=== PATIENT | male | born 1955 | race Caucasian/White ===

== ENCOUNTER 2021-02-27 15:39 | Inpatient (IN) | payer MEDICARE ==
[2021-02-27] MEDS ORDERED: cefTRIAXone\\ROCEPHIN 1 GM VIAL ONE (16:21)
[2021-02-27 16:27] LABS: ALT (SGPT) 58 U/L (8-55); AST (SGOT) 67 U/L (5-34); Albumin 3.5 g/dL (3.4-4.8); Alkaline Phosphatase 144 U/L (40-110); Anion Gap 16 mmol/L (10-20); BUN (Urea Nitrogen) 16 mg/dL (8.4-25.7); Bilirubin, Total 1.2 mg/dL (0.2-1.2); CRP (Inflammatory) 14.16 mg/dL (= or < 0.5); Calc. Creatinine Clearance 0 mL/min (70-130); Calcium 9.2 mg/dL (7.8-10.44); Carbon Dioxide 24 mmol/L (23-31); Chloride 95 mmol/L (98-107); Globulin 3.6 g/dL (2.4-3.5); Glucose 119 mg/dL (80-115); Protein, Total 7.1 g/dL (5.8-8.1); Sodium 131 mmol/L (136-145)
[2021-02-27 16:43] LABS: #Monocytes 0.5 10x3/uL (0.0-1.1); #Neutrophils 2.8 10x3/uL (1.5-8.4); %Basophils 0.2 % (0.0-2.0); %Lymphocytes 26.1 % (18.0-47.0); %Monocytes 10.6 % (0.0-10.0); %Neutrophils 62.4 % (40.0-75.0); Hemoglobin 15.7 g/dL (13.5-17.5); Mean Corpuscular HGB CONC 35.4 g/dL (32.0-36.0); Mean Corpuscular Hemoglobin 31.5 pg (27.0-33.0); Mean Platelet Volume 10.8 fl (7.4-10.4); Platelet Count 176 10x3/uL (150-450); RBC Distribution Width 12.1 % (11.5-14.5); Red Blood Cell (RBC) Count 4.99 10x6/uL (4.32-5.72); White Blood Cell (WBC) Count 4.4 10x3/uL (3.5-10.5)
[2021-02-27 16:56] LABS: Actual Bicarbonate (HCO3v) 26 mEq/L (22-28); Base Excess 0.1 mEq/L (-2.0 to +3.0); Calcium, Ionized (venous) 1.07 mmol/L (1.16-1.32); Chloride (VBG) 94 mmol/L (98-106); Hemoglobin (Hb) 16.9 g/dL (12.6-17.4); Potassium (VBG) 3.95 mmol/L (3.70-5.30); Puncture Site Other Site; RapidComm Collect By CBN; pH (venous) 7.38 (7.32-7.43)
[2021-02-27 17:30] LABS: SARS-CoV-2 NAA Rapid Test DETECTED (NotDetected)
[2021-02-27] MEDS ORDERED: Dexamethasone 10 MG/ML VIAL ONE (17:42)
[2021-02-27] MEDS ORDERED: Nitroglycerin 2% Ointment 1 INCH/1 GM Packet ONE (18:13)
[2021-02-27] MEDS ORDERED: Aspirin Chewable 81 MG TAB ONE (18:13)
[2021-02-27 18:33] LABS: Bilirubin Neg (Negative); Blood, Urine Negative (Negative); Clarity Clear (Clear); Glucose, Urine (Dipstick) Normal (Negative); Ketone, Urine Negative (Negative); Leukocyte Negative (Negative); Nitrite Negative (Negative); Protein, Urine (Dipstick) 15 mg/dl (Neg-Trace); Urobilinogen Normal mg/dL (Less than 2)
[2021-02-27] MEDS ORDERED: Acetaminophen 325 MG TAB PO PRN (20:11)
[2021-02-27] MEDS ORDERED: Ondansetron PF 4 MG/2 ML Vial IVP PRN (20:11)
[2021-02-27] MEDS ORDERED: Dextrose 50% Abboject 50 ML SYRINGE SLOW IVP PRN (20:11)
[2021-02-27] MEDS ORDERED: Calcium Carbonate 500 MG ChewTAB PO PRN (20:11)
[2021-02-27] MEDS ORDERED: HYDROcodone/Acetaminophen 5/325 mg Tablet PO PRN (20:11)
[2021-02-27] MEDS ORDERED: Senokot S 8.6-50 MG TAB PO PRN (20:11)
[2021-02-27] MEDS ORDERED: Zolpidem Tartrate 5 MG TAB PO PRN (20:11)
[2021-02-27] MEDS ORDERED: Dextrose 5% in Water 1,000 ML IV PRN (20:11)
[2021-02-27] MEDS ORDERED: Guaifenesin DM 100-10/5 ML UDCUP PO PRN (20:11)
[2021-02-27] MEDS ORDERED: Ventolin HFA Inhaler 60 PUFF INHALER INH PRN (20:13)
[2021-02-27] MEDS ORDERED: Sodium Chloride 0.9% 1,000 ML IV SCH (20:15)
[2021-02-28 09:28] LABS: Hemoglobin 14.6 g/dL (13.5-17.5); Mean Corpuscular HGB CONC 34.8 g/dL (32.0-36.0); Mean Corpuscular Hemoglobin 31.5 pg (27.0-33.0); Mean Corpuscular Volume 90.3 fl (81.2-95.1); Mean Platelet Volume 10.7 fl (7.4-10.4); Platelet Count 188 10x3/uL (150-450); Red Blood Cell (RBC) Count 4.64 10x6/uL (4.32-5.72); White Blood Cell (WBC) Count 2.1 10x3/uL (3.5-10.5)
[2021-02-28 09:43] LABS: ALT (SGPT) 51 U/L (8-55); AST (SGOT) 48 U/L (5-34); Albumin 3.1 g/dL (3.4-4.8); Alkaline Phosphatase 130 U/L (40-110); Anion Gap 14 mmol/L (10-20); BUN (Urea Nitrogen) 18 mg/dL (8.4-25.7); Bilirubin, Total 0.8 mg/dL (0.2-1.2); CRP (Inflammatory) 10.61 mg/dL (= or < 0.5); Calc. Creatinine Clearance 0 mL/min (70-130); Calcium 8.6 mg/dL (7.8-10.44); Carbon Dioxide 19 mmol/L (23-31); Chloride 104 mmol/L (98-107); Globulin 3.2 g/dL (2.4-3.5); Glucose 201 mg/dL (80-115); Protein, Total 6.3 g/dL (5.8-8.1); Sodium 133 mmol/L (136-145)
[2021-02-28 10:19] LABS: MDiff Complete? YES
[2021-02-28 10:24] LABS: Lymphocytes 24 % (21-51); Monocytes 12 % (0-10); Neutrophil 59 % (42-75); Reactive Lymphocytes 5 % (0-10)
[2021-02-28 10:25] LABS: Platelet Morphology Comment Appears Adequate
[2021-02-28 10:26] LABS: RBC Morphology Normal
[2021-02-28] MEDS: Ascorbic Acid 500 mg Chewable Tablet PO SCH (12:18)
[2021-02-28] MEDS: Cholecalciferol 1,000 UNITS (25 MCG) TAB PO SCH (12:18)
[2021-02-28] MEDS: Dexamethasone 4 mg/ml Vial SLOW IVP SCH (12:18)
[2021-02-28] MEDS: Aspirin 81 mg Enteric Coated Tablet PO SCH (12:18)
[2021-02-28] MEDS: Enoxaparin Sodium 40 MG/0.4 ML SYRINGE SC SCH (12:19)
[2021-02-28] MEDS: Lisinopril 10 MG TAB PO SCH (12:19)
[2021-02-28] MEDS: Zinc Gluconate 50 MG TAB PO SCH (12:19)
[2021-02-28] MEDS ORDERED: Dexamethasone 10 MG/ML VIAL ONE (12:39)
[2021-02-28] MEDS ORDERED: Aspirin Chewable 81 MG TAB ONE (12:39)
[2021-02-28] MEDS ORDERED: Enoxaparin Sodium 40 MG/0.4 ML SYRINGE ONE (12:40)
[2021-02-28] MEDS ORDERED: Lisinopril 10 MG TAB ONE (12:40)
[2021-02-28 13:58] VITALS: BMI 33.5
[2021-02-28] MEDS: HumaLOG 300 UNITS/3 ML VIAL SC PRN ×2 (17:33→23:34)
[2021-02-28] MEDS ORDERED: guaiFENesin/Dextromethorphan 10 ML UDCUP PO PRN (22:45)
[2021-03-01] MEDS: HumaLOG 300 UNITS/3 ML VIAL SC PRN ×2 (05:46→12:12)
[2021-03-01 06:43] LABS: ALT (SGPT) 50 U/L (8-55); AST (SGOT) 37 U/L (5-34); Albumin 2.9 g/dL (3.4-4.8); Alkaline Phosphatase 115 U/L (40-110); Anion Gap 15 mmol/L (10-20); BUN (Urea Nitrogen) 19 mg/dL (8.4-25.7); Bilirubin, Total 0.7 mg/dL (0.2-1.2); Calc. Creatinine Clearance 155 mL/min (70-130); Calcium 8.5 mg/dL (7.8-10.44); Carbon Dioxide 21 mmol/L (23-31); Chloride 105 mmol/L (98-107); Globulin 3.1 g/dL (2.4-3.5); Glucose 207 mg/dL (80-115); Potassium 4.5 mmol/L (3.5-5.1); Sodium 136 mmol/L (136-145)
[2021-03-01 07:06] LABS: Hemoglobin 14.3 g/dL (13.5-17.5); Mean Corpuscular HGB CONC 35.1 g/dL (32.0-36.0); Mean Corpuscular Hemoglobin 31.5 pg (27.0-33.0); Mean Corpuscular Volume 89.6 fl (81.2-95.1); Mean Platelet Volume 11.3 fl (7.4-10.4); Platelet Count 200 10x3/uL (150-450); RBC Distribution Width 12.2 % (11.5-14.5); Red Blood Cell (RBC) Count 4.54 10x6/uL (4.32-5.72); White Blood Cell (WBC) Count 5.1 10x3/uL (3.5-10.5)
[2021-03-01 07:08] LABS: MDiff Complete? YES
[2021-03-01 07:46] LABS: Band 2 % (5-11); Lymphocytes 19 % (21-51); Monocytes 9 % (0-10); Neutrophil 70 % (42-75)
[2021-03-01 07:47] LABS: Platelet Morphology Comment Appears Adequate; RBC Morphology Normal
[2021-03-01] MEDS: Dexamethasone 4 mg/ml Vial SLOW IVP SCH (08:36)
[2021-03-01] MEDS: Enoxaparin Sodium 40 MG/0.4 ML SYRINGE SC SCH (08:36)
[2021-03-01] MEDS: Cholecalciferol 1,000 UNITS (25 MCG) TAB PO SCH (08:36)
[2021-03-01] MEDS: Ascorbic Acid 500 mg Chewable Tablet PO SCH (08:36)
[2021-03-01] MEDS: Lisinopril 10 MG TAB PO SCH (08:36)
[2021-03-01] MEDS: Zinc Gluconate 50 MG TAB PO SCH (08:36)
[2021-03-01] MEDS: Aspirin 81 mg Enteric Coated Tablet PO SCH (08:36)
[2021-03-01] MEDS ORDERED: Lantus 1000 UNITS/10 ML VIAL SC SCH (21:00)
[2021-03-02 07:07] LABS: #Monocytes 0.5 10x3/uL (0.0-1.1); #Neutrophils 5.4 10x3/uL (1.5-8.4); %Lymphocytes 10.2 % (18.0-47.0); %Monocytes 7.4 % (0.0-10.0); %Neutrophils 81.5 % (40.0-75.0); Hemoglobin 13.8 g/dL (13.5-17.5); Mean Corpuscular HGB CONC 34.2 g/dL (32.0-36.0); Mean Corpuscular Hemoglobin 31.4 pg (27.0-33.0); Mean Platelet Volume 10.6 fl (7.4-10.4); Platelet Count 232 10x3/uL (150-450); RBC Distribution Width 12.1 % (11.5-14.5); Red Blood Cell (RBC) Count 4.39 10x6/uL (4.32-5.72); White Blood Cell (WBC) Count 6.7 10x3/uL (3.5-10.5)
[2021-03-02 08:30] LABS: ALT (SGPT) 52 U/L (8-55); AST (SGOT) 35 U/L (5-34); Albumin 2.8 g/dL (3.4-4.8); Alkaline Phosphatase 104 U/L (40-110); Anion Gap 16 mmol/L (10-20); BUN (Urea Nitrogen) 17 mg/dL (8.4-25.7); Bilirubin, Total 0.7 mg/dL (0.2-1.2); Calc. Creatinine Clearance 165 mL/min (70-130); Calcium 8.4 mg/dL (7.8-10.44); Carbon Dioxide 20 mmol/L (23-31); Chloride 105 mmol/L (98-107); Globulin 2.9 g/dL (2.4-3.5); Glucose 185 mg/dL (80-115); Potassium 4.2 mmol/L (3.5-5.1); Protein, Total 5.7 g/dL (5.8-8.1); Sodium 137 mmol/L (136-145)
[2021-03-02] MEDS: Lisinopril 10 MG TAB PO SCH (09:18)
[2021-03-02] MEDS: Zinc Gluconate 50 MG TAB PO SCH (09:18)
[2021-03-02] MEDS: Ascorbic Acid 500 mg Chewable Tablet PO SCH (09:18)
[2021-03-02] MEDS: Aspirin 81 mg Enteric Coated Tablet PO SCH (09:18)
[2021-03-02] MEDS: Cholecalciferol 1,000 UNITS (25 MCG) TAB PO SCH (09:18)
[2021-03-02] MEDS: Dexamethasone 4 mg/ml Vial SLOW IVP SCH (09:19)
[2021-03-02] MEDS: Enoxaparin Sodium 40 MG/0.4 ML SYRINGE SC SCH (09:19)
[2021-03-02] MEDS: HumaLOG 300 UNITS/3 ML VIAL SC PRN ×3 (09:24→21:30)
[2021-03-02] MEDS ORDERED: Lantus 1000 UNITS/10 ML VIAL SC SCH (19:52)
[2021-03-02] MEDS: Lantus 1000 UNITS/10 ML VIAL SC SCH (21:30)
[2021-03-03 06:16] LABS: #Monocytes 0.3 10x3/uL (0.0-1.1); #Neutrophils 5.1 10x3/uL (1.5-8.4); %Basophils 0.3 % (0.0-2.0); %Lymphocytes 11.9 % (18.0-47.0); %Monocytes 5.2 % (0.0-10.0); %Neutrophils 80.5 % (40.0-75.0); Hemoglobin 14.6 g/dL (13.5-17.5); Mean Corpuscular HGB CONC 33.8 g/dL (32.0-36.0); Mean Corpuscular Hemoglobin 31.4 pg (27.0-33.0); Mean Corpuscular Volume 92.9 fl (81.2-95.1); Mean Platelet Volume 10.7 fl (7.4-10.4); Platelet Count 243 10x3/uL (150-450); RBC Distribution Width 12.1 % (11.5-14.5); Red Blood Cell (RBC) Count 4.65 10x6/uL (4.32-5.72); White Blood Cell (WBC) Count 6.3 10x3/uL (3.5-10.5)
[2021-03-03 06:22] LABS: ALT (SGPT) 100 U/L (8-55); AST (SGOT) 64 U/L (5-34); Albumin 3.1 g/dL (3.4-4.8); Alkaline Phosphatase 122 U/L (40-110); Anion Gap 12 mmol/L (10-20); BUN (Urea Nitrogen) 16 mg/dL (8.4-25.7); Bilirubin, Total 1.2 mg/dL (0.2-1.2); Calc. Creatinine Clearance 153 mL/min (70-130); Calcium 8.8 mg/dL (7.8-10.44); Carbon Dioxide 26 mmol/L (23-31); Chloride 103 mmol/L (98-107); Globulin 3.2 g/dL (2.4-3.5); Glucose 130 mg/dL (80-115); Potassium 4.1 mmol/L (3.5-5.1); Protein, Total 6.3 g/dL (5.8-8.1); Sodium 137 mmol/L (136-145)
[2021-03-03] MEDS: Lisinopril 10 MG TAB PO SCH (09:00)
[2021-03-03] MEDS: Dexamethasone 4 mg/ml Vial SLOW IVP SCH (09:00)
[2021-03-03] MEDS: Enoxaparin Sodium 40 MG/0.4 ML SYRINGE SC SCH (09:00)
[2021-03-03] MEDS: Aspirin 81 mg Enteric Coated Tablet PO SCH (09:00)
[2021-03-03] MEDS: Ascorbic Acid 500 mg Chewable Tablet PO SCH (09:00)
[2021-03-03] MEDS: Cholecalciferol 1,000 UNITS (25 MCG) TAB PO SCH (09:00)
[2021-03-03] MEDS: Zinc Gluconate 50 MG TAB PO SCH (09:01)
[2021-03-03] MEDS ORDERED: Guaifenesin DM 100-10/5 ML UDCUP PO PRN (23:00)
[2021-03-03] MEDS: Lantus 1000 UNITS/10 ML VIAL SC SCH (23:02)
[2021-03-04 05:23] LABS: ALT (SGPT) 101 U/L (8-55); AST (SGOT) 44 U/L (5-34); Albumin 2.7 g/dL (3.4-4.8); Alkaline Phosphatase 128 U/L (40-110); Anion Gap 12 mmol/L (10-20); BUN (Urea Nitrogen) 13 mg/dL (8.4-25.7); Bilirubin, Total 1.4 mg/dL (0.2-1.2); Calc. Creatinine Clearance 159 mL/min (70-130); Calcium 8.6 mg/dL (7.8-10.44); Carbon Dioxide 23 mmol/L (23-31); Chloride 104 mmol/L (98-107); Globulin 3.1 g/dL (2.4-3.5); Glucose 126 mg/dL (80-115); Potassium 4.3 mmol/L (3.5-5.1); Protein, Total 5.8 g/dL (5.8-8.1); Sodium 135 mmol/L (136-145)
[2021-03-04 06:05] LABS: #Monocytes 0.2 10x3/uL (0.0-1.1); #Neutrophils 4.3 10x3/uL (1.5-8.4); %Basophils 0.4 % (0.0-2.0); %Eosinophils 0.2 % (0.0-6.0); %Lymphocytes 8.6 % (18.0-47.0); %Monocytes 4.4 % (0.0-10.0); Mean Corpuscular HGB CONC 34.8 g/dL (32.0-36.0); Mean Corpuscular Hemoglobin 31.8 pg (27.0-33.0); Mean Corpuscular Volume 91.4 fl (81.2-95.1); Mean Platelet Volume 10.3 fl (7.4-10.4); Platelet Count 245 10x3/uL (150-450); White Blood Cell (WBC) Count 5.3 10x3/uL (3.5-10.5)
[2021-03-04] MEDS: Ascorbic Acid 500 mg Chewable Tablet PO SCH (08:36)
[2021-03-04] MEDS: Lisinopril 10 MG TAB PO SCH (08:36)
[2021-03-04] MEDS: Aspirin 81 mg Enteric Coated Tablet PO SCH (08:36)
[2021-03-04] MEDS: Cholecalciferol 1,000 UNITS (25 MCG) TAB PO SCH (08:36)
[2021-03-04] MEDS: Zinc Gluconate 50 MG TAB PO SCH (08:36)
[2021-03-04] MEDS: Enoxaparin Sodium 120 MG/0.8 ML SYRINGE SC SCH ×2 (08:37→20:06)
[2021-03-04] MEDS: Dexamethasone 4 mg/ml Vial SLOW IVP SCH ×2 (08:37→20:07)
[2021-03-04] MEDS ORDERED: Furosemide 20 MG/2 ML VIAL SLOW IVP SCH (09:39)
[2021-03-04] MEDS: Amlodipine 5 MG TAB PO SCH (10:19)
[2021-03-04 14:26] LABS: Actual Bicarbonate (HCO3a) 26.7 mEq/L (22-28); Base Excess (BEa) 3.6 mEq/L (-2.0 to +3.0); CO2 Tension 35.8 mmHg (35.0-45.0); Calcium, Ionized (arterial) 1.12 mmol/L (1.12-1.30); Carboxyhemoglobin (COHb) 0.1 gm% (0.0-3.0); Hemoglobin (Hb) 14.3 g/dL (14.0-18.0); O2 Tension (PaO2), arterial 66.4 mmHg (> 80.0); Potassium - ABG Lab 4.6 mmol/L (3.70-5.30); Puncture Site RRA; pH, Arterial 7.49 (7.35-7.45)
[2021-03-04] MEDS: HumaLOG 300 UNITS/3 ML VIAL SC PRN (17:44)
[2021-03-04] MEDS: Lantus 1000 UNITS/10 ML VIAL SC SCH (20:07)
[2021-03-05] MEDS: HumaLOG 300 UNITS/3 ML VIAL SC PRN ×3 (00:41→11:55)
[2021-03-05 03:43] LABS: Hemoglobin 14.7 g/dL (13.5-17.5); Mean Corpuscular HGB CONC 34.9 g/dL (32.0-36.0); Mean Corpuscular Hemoglobin 31.6 pg (27.0-33.0); Mean Corpuscular Volume 90.5 fl (81.2-95.1); Mean Platelet Volume 10.3 fl (7.4-10.4); Platelet Count 255 10x3/uL (150-450); RBC Distribution Width 12.1 % (11.5-14.5); Red Blood Cell (RBC) Count 4.65 10x6/uL (4.32-5.72); White Blood Cell (WBC) Count 3.5 10x3/uL (3.5-10.5)
[2021-03-05 04:04] LABS: ALT (SGPT) 72 U/L (8-55); AST (SGOT) 23 U/L (5-34); Albumin 2.7 g/dL (3.4-4.8); Alkaline Phosphatase 116 U/L (40-110); Anion Gap 14 mmol/L (10-20); BUN (Urea Nitrogen) 21 mg/dL (8.4-25.7); CRP (Inflammatory) 24.47 mg/dL (= or < 0.5); Calc. Creatinine Clearance 153 mL/min (70-130); Calcium 8.6 mg/dL (7.8-10.44); Carbon Dioxide 23 mmol/L (23-31); Chloride 101 mmol/L (98-107); Globulin 3.2 g/dL (2.4-3.5); Glucose 230 mg/dL (80-115); Potassium 4.5 mmol/L (3.5-5.1); Protein, Total 5.9 g/dL (5.8-8.1); Sodium 133 mmol/L (136-145)
[2021-03-05] MEDS: Dexamethasone 4 mg/ml Vial SLOW IVP SCH ×2 (07:52→20:27)
[2021-03-05] MEDS: Enoxaparin Sodium 120 MG/0.8 ML SYRINGE SC SCH ×2 (07:52→20:28)
[2021-03-05] MEDS: Lisinopril 10 MG TAB PO SCH (07:53)
[2021-03-05] MEDS: Cholecalciferol 1,000 UNITS (25 MCG) TAB PO SCH (07:53)
[2021-03-05] MEDS: Amlodipine 5 MG TAB PO SCH (07:53)
[2021-03-05] MEDS: Zinc Gluconate 50 MG TAB PO SCH (07:53)
[2021-03-05] MEDS: Ascorbic Acid 500 mg Chewable Tablet PO SCH (07:54)
[2021-03-05] MEDS: Aspirin 81 mg Enteric Coated Tablet PO SCH (07:54)
[2021-03-05 08:03] LABS: Lymphocytes 11 % (21-51); MDiff Complete? YES; Monocytes 5 % (0-10); Myelocyte 1 % (0-0); Neutrophil 82 % (42-75); Reactive Lymphocytes 1 % (0-10)
[2021-03-05 08:04] LABS: Platelet Morphology Comment Appears Adequate; RBC Morphology Normal
[2021-03-05] MEDS ORDERED: Benzonatate 100 MG CAP PO PRN (12:48)
[2021-03-05] MEDS ORDERED: Tocilizumab 400 MG, Tocilizumab 200 MG in Sodium Chloride 0.9% 100 ML IV SCH (14:00)
[2021-03-05] MEDS: Lantus 1000 UNITS/10 ML VIAL SC SCH (20:27)
[2021-03-06] MEDS: HumaLOG 300 UNITS/3 ML VIAL SC PRN ×3 (00:25→08:00)
[2021-03-06 04:27] LABS: #Monocytes 0.5 10x3/uL (0.0-1.1); %Basophils 0.3 % (0.0-2.0); %Lymphocytes 9.9 % (18.0-47.0); %Monocytes 7.2 % (0.0-10.0); %Neutrophils 78.2 % (40.0-75.0); Mean Corpuscular HGB CONC 34.3 g/dL (32.0-36.0); Mean Corpuscular Hemoglobin 31.3 pg (27.0-33.0); Mean Corpuscular Volume 91.3 fl (81.2-95.1); Mean Platelet Volume 10.1 fl (7.4-10.4); Platelet Count 333 10x3/uL (150-450); RBC Distribution Width 11.8 % (11.5-14.5); Red Blood Cell (RBC) Count 4.47 10x6/uL (4.32-5.72); White Blood Cell (WBC) Count 6.4 10x3/uL (3.5-10.5)
[2021-03-06 04:40] LABS: ALT (SGPT) 69 U/L (8-55); AST (SGOT) 24 U/L (5-34); Albumin 2.5 g/dL (3.4-4.8); Alkaline Phosphatase 106 U/L (40-110); Anion Gap 14 mmol/L (10-20); BUN (Urea Nitrogen) 26 mg/dL (8.4-25.7); Bilirubin, Total 0.7 mg/dL (0.2-1.2); Calc. Creatinine Clearance 161 mL/min (70-130); Calcium 8.4 mg/dL (7.8-10.44); Carbon Dioxide 22 mmol/L (23-31); Chloride 103 mmol/L (98-107); Globulin 3.2 g/dL (2.4-3.5); Glucose 218 mg/dL (80-115); Potassium 4.5 mmol/L (3.5-5.1); Protein, Total 5.7 g/dL (5.8-8.1); Sodium 134 mmol/L (136-145)
[2021-03-06] MEDS: Dexamethasone 4 mg/ml Vial SLOW IVP SCH ×2 (07:40→20:37)
[2021-03-06] MEDS: Enoxaparin Sodium 120 MG/0.8 ML SYRINGE SC SCH ×2 (07:40→20:37)
[2021-03-06] MEDS: Lisinopril 10 MG TAB PO SCH (07:41)
[2021-03-06] MEDS: Ascorbic Acid 500 mg Chewable Tablet PO SCH (07:41)
[2021-03-06] MEDS: Aspirin 81 mg Enteric Coated Tablet PO SCH (07:41)
[2021-03-06] MEDS: Cholecalciferol 1,000 UNITS (25 MCG) TAB PO SCH (07:41)
[2021-03-06] MEDS: Amlodipine 5 MG TAB PO SCH (07:42)
[2021-03-06] MEDS: Zinc Gluconate 50 MG TAB PO SCH (07:43)
[2021-03-06] MEDS: Lantus 1000 UNITS/10 ML VIAL SC SCH (20:37)
[2021-03-07] MEDS: HumaLOG 300 UNITS/3 ML VIAL SC PRN ×6 (02:01→23:41)
[2021-03-07 04:33] LABS: #Monocytes 0.6 10x3/uL (0.0-1.1); #Neutrophils 5.7 10x3/uL (1.5-8.4); %Basophils 0.3 % (0.0-2.0); %Lymphocytes 8.8 % (18.0-47.0); %Monocytes 8.6 % (0.0-10.0); %Neutrophils 80.3 % (40.0-75.0); Hemoglobin 13.8 g/dL (13.5-17.5); Mean Corpuscular HGB CONC 34.2 g/dL (32.0-36.0); Mean Corpuscular Hemoglobin 31.6 pg (27.0-33.0); Mean Corpuscular Volume 92.4 fl (81.2-95.1); Mean Platelet Volume 10.2 fl (7.4-10.4); Platelet Count 312 10x3/uL (150-450); RBC Distribution Width 11.9 % (11.5-14.5); Red Blood Cell (RBC) Count 4.37 10x6/uL (4.32-5.72); White Blood Cell (WBC) Count 7.1 10x3/uL (3.5-10.5)
[2021-03-07 04:42] LABS: ALT (SGPT) 83 U/L (8-55); AST (SGOT) 40 U/L (5-34); Albumin 2.5 g/dL (3.4-4.8); Alkaline Phosphatase 102 U/L (40-110); Anion Gap 13 mmol/L (10-20); BUN (Urea Nitrogen) 28 mg/dL (8.4-25.7); Bilirubin, Total 0.8 mg/dL (0.2-1.2); Calc. Creatinine Clearance 161 mL/min (70-130); Calcium 8.4 mg/dL (7.8-10.44); Carbon Dioxide 21 mmol/L (23-31); Chloride 104 mmol/L (98-107); Globulin 2.9 g/dL (2.4-3.5); Glucose 262 mg/dL (80-115); Potassium 4.6 mmol/L (3.5-5.1); Protein, Total 5.4 g/dL (5.8-8.1); Sodium 133 mmol/L (136-145)
[2021-03-07] MEDS: Ascorbic Acid 500 mg Chewable Tablet PO SCH (08:06)
[2021-03-07] MEDS: Zinc Gluconate 50 MG TAB PO SCH (08:07)
[2021-03-07] MEDS: Lisinopril 10 MG TAB PO SCH (08:07)
[2021-03-07] MEDS: Cholecalciferol 1,000 UNITS (25 MCG) TAB PO SCH (08:07)
[2021-03-07] MEDS: Amlodipine 5 MG TAB PO SCH (08:07)
[2021-03-07] MEDS: Enoxaparin Sodium 120 MG/0.8 ML SYRINGE SC SCH (08:08)
[2021-03-07] MEDS: Aspirin 81 mg Enteric Coated Tablet PO SCH (08:08)
[2021-03-07] MEDS: Dexamethasone 4 mg/ml Vial SLOW IVP SCH ×2 (08:08→20:02)
[2021-03-07] MEDS: Enoxaparin Sodium 40 MG/0.4 ML SYRINGE SC SCH (20:02)
[2021-03-07] MEDS: Lantus 1000 UNITS/10 ML VIAL SC SCH (20:03)
[2021-03-08 03:52] LABS: #Monocytes 0.6 10x3/uL (0.0-1.1); #Neutrophils 4.4 10x3/uL (1.5-8.4); %Basophils 0.3 % (0.0-2.0); %Lymphocytes 10.7 % (18.0-47.0); Hemoglobin 14.7 g/dL (13.5-17.5); Mean Corpuscular HGB CONC 34.3 g/dL (32.0-36.0); Mean Corpuscular Hemoglobin 31.5 pg (27.0-33.0); Mean Corpuscular Volume 92.1 fl (81.2-95.1); Mean Platelet Volume 10.4 fl (7.4-10.4); Platelet Count 320 10x3/uL (150-450); RBC Distribution Width 11.9 % (11.5-14.5); Red Blood Cell (RBC) Count 4.66 10x6/uL (4.32-5.72); White Blood Cell (WBC) Count 5.8 10x3/uL (3.5-10.5)
[2021-03-08 04:10] LABS: Anion Gap 11 mmol/L (10-20); BUN (Urea Nitrogen) 25 mg/dL (8.4-25.7); Calc. Creatinine Clearance 161 mL/min (70-130); Calcium 8.5 mg/dL (7.8-10.44); Carbon Dioxide 25 mmol/L (23-31); Chloride 104 mmol/L (98-107); Glucose 185 mg/dL (80-115); Potassium 4.8 mmol/L (3.5-5.1); Sodium 135 mmol/L (136-145)
[2021-03-08] MEDS: HumaLOG 300 UNITS/3 ML VIAL SC PRN ×3 (05:56→22:30)
[2021-03-08] MEDS: Dexamethasone 4 mg/ml Vial SLOW IVP SCH ×2 (10:44→22:00)
[2021-03-08] MEDS: Enoxaparin Sodium 40 MG/0.4 ML SYRINGE SC SCH ×2 (10:44→22:04)
[2021-03-08] MEDS: Ascorbic Acid 500 mg Chewable Tablet PO SCH (10:44)
[2021-03-08] MEDS: Cholecalciferol 1,000 UNITS (25 MCG) TAB PO SCH (10:45)
[2021-03-08] MEDS: Zinc Gluconate 50 MG TAB PO SCH (10:45)
[2021-03-08] MEDS: Amlodipine 5 MG TAB PO SCH (10:45)
[2021-03-08] MEDS: Lisinopril 10 MG TAB PO SCH (10:45)
[2021-03-08] MEDS: Aspirin 81 mg Enteric Coated Tablet PO SCH (10:45)
[2021-03-08] MEDS: Lantus 1000 UNITS/10 ML VIAL SC SCH (22:25)
[2021-03-09 05:06] LABS: #Monocytes 0.4 10x3/uL (0.0-1.1); %Basophils 0.7 % (0.0-2.0); %Lymphocytes 12.8 % (18.0-47.0); %Monocytes 7.9 % (0.0-10.0); Hemoglobin 14.6 g/dL (13.5-17.5); Mean Corpuscular HGB CONC 34.5 g/dL (32.0-36.0); Mean Corpuscular Hemoglobin 31.6 pg (27.0-33.0); Mean Corpuscular Volume 91.6 fl (81.2-95.1); Mean Platelet Volume 10.9 fl (7.4-10.4); Platelet Count 288 10x3/uL (150-450); RBC Distribution Width 11.7 % (11.5-14.5); Red Blood Cell (RBC) Count 4.62 10x6/uL (4.32-5.72); White Blood Cell (WBC) Count 5.5 10x3/uL (3.5-10.5)
[2021-03-09 05:11] LABS: Anion Gap 14 mmol/L (10-20); BUN (Urea Nitrogen) 23 mg/dL (8.4-25.7); Calc. Creatinine Clearance 165 mL/min (70-130); Calcium 8.4 mg/dL (7.8-10.44); Carbon Dioxide 21 mmol/L (23-31); Chloride 105 mmol/L (98-107); Glucose 173 mg/dL (80-115); Potassium 4.9 mmol/L (3.5-5.1); Sodium 135 mmol/L (136-145)
[2021-03-09] MEDS: HumaLOG 300 UNITS/3 ML VIAL SC PRN ×4 (06:00→22:40)
[2021-03-09] MEDS: Enoxaparin Sodium 40 MG/0.4 ML SYRINGE SC SCH ×2 (08:47→20:00)
[2021-03-09] MEDS: Lisinopril 10 MG TAB PO SCH (08:48)
[2021-03-09] MEDS: Dexamethasone 4 mg/ml Vial SLOW IVP SCH (08:48)
[2021-03-09] MEDS: Ascorbic Acid 500 mg Chewable Tablet PO SCH (08:48)
[2021-03-09] MEDS: Cholecalciferol 1,000 UNITS (25 MCG) TAB PO SCH (08:48)
[2021-03-09] MEDS: Zinc Gluconate 50 MG TAB PO SCH (08:48)
[2021-03-09] MEDS: Amlodipine 5 MG TAB PO SCH (08:48)
[2021-03-09] MEDS: Aspirin 81 mg Enteric Coated Tablet PO SCH (08:48)
[2021-03-09] MEDS: Lantus 1000 UNITS/10 ML VIAL SC SCH (22:37)
[2021-03-10] MEDS: HumaLOG 300 UNITS/3 ML VIAL SC PRN ×2 (04:25→14:21)
[2021-03-10 06:17] LABS: #Eosinphils 0.1 10x3/uL (0.0-0.5); #Monocytes 0.5 10x3/uL (0.0-1.1); %Basophils 0.6 % (0.0-2.0); %Lymphocytes 26.2 % (18.0-47.0); %Monocytes 9.5 % (0.0-10.0); Hemoglobin 14.5 g/dL (13.5-17.5); Mean Corpuscular HGB CONC 34.7 g/dL (32.0-36.0); Mean Corpuscular Hemoglobin 31.5 pg (27.0-33.0); Mean Corpuscular Volume 90.7 fl (81.2-95.1); Mean Platelet Volume 10.2 fl (7.4-10.4); Platelet Count 252 10x3/uL (150-450); RBC Distribution Width 11.9 % (11.5-14.5); Red Blood Cell (RBC) Count 4.61 10x6/uL (4.32-5.72); White Blood Cell (WBC) Count 5.2 10x3/uL (3.5-10.5)
[2021-03-10 06:35] LABS: Anion Gap 11 mmol/L (10-20); BUN (Urea Nitrogen) 26 mg/dL (8.4-25.7); Calc. Creatinine Clearance 155 mL/min (70-130); Calcium 8.3 mg/dL (7.8-10.44); Carbon Dioxide 24 mmol/L (23-31); Chloride 106 mmol/L (98-107); Glucose 162 mg/dL (80-115); Potassium 4.4 mmol/L (3.5-5.1); Sodium 137 mmol/L (136-145)
[2021-03-10] MEDS: Enoxaparin Sodium 40 MG/0.4 ML SYRINGE SC SCH ×2 (08:21→22:00)
[2021-03-10] MEDS: Aspirin 81 mg Enteric Coated Tablet PO SCH (08:22)
[2021-03-10] MEDS: Ascorbic Acid 500 mg Chewable Tablet PO SCH (08:22)
[2021-03-10] MEDS: Amlodipine 5 MG TAB PO SCH (08:22)
[2021-03-10] MEDS: Lisinopril 10 MG TAB PO SCH (08:22)
[2021-03-10] MEDS: Zinc Gluconate 50 MG TAB PO SCH (08:22)
[2021-03-10] MEDS: Cholecalciferol 1,000 UNITS (25 MCG) TAB PO SCH (08:23)
[2021-03-10] MEDS ORDERED: Dexamethasone 4 mg/ml Vial SLOW IVP SCH (09:00)
[2021-03-10 11:41] LABS: Hemoglobin A1c 6.6 % (4.0-6.0)
[2021-03-10] MEDS: Lantus 1000 UNITS/10 ML VIAL SC SCH (21:45)
[2021-03-11 05:08] LABS: #Basophils 0.1 10x3/uL (0.0-0.2); #Eosinphils 0.2 10x3/uL (0.0-0.5); #Monocytes 0.6 10x3/uL (0.0-1.1); #Neutrophils 2.3 10x3/uL (1.5-8.4); %Basophils 1.1 % (0.0-2.0); %Eosinophils 3.6 % (0.0-6.0); %Lymphocytes 30.6 % (18.0-47.0); %Monocytes 12.3 % (0.0-10.0); %Neutrophils 48.1 % (40.0-75.0); Hemoglobin 14.1 g/dL (13.5-17.5); Mean Corpuscular HGB CONC 34.6 g/dL (32.0-36.0); Mean Corpuscular Hemoglobin 31.7 pg (27.0-33.0); Mean Corpuscular Volume 91.7 fl (81.2-95.1); Mean Platelet Volume 10.4 fl (7.4-10.4); Platelet Count 276 10x3/uL (150-450); RBC Distribution Width 12.1 % (11.5-14.5); Red Blood Cell (RBC) Count 4.45 10x6/uL (4.32-5.72); White Blood Cell (WBC) Count 4.7 10x3/uL (3.5-10.5)
[2021-03-11 05:18] LABS: Anion Gap 8 mmol/L (10-20); BUN (Urea Nitrogen) 25 mg/dL (8.4-25.7); Calc. Creatinine Clearance 141 mL/min (70-130); Calcium 8.1 mg/dL (7.8-10.44); Carbon Dioxide 27 mmol/L (23-31); Chloride 107 mmol/L (98-107); Glucose 114 mg/dL (80-115); Potassium 4.4 mmol/L (3.5-5.1); Sodium 138 mmol/L (136-145)
[2021-03-11] MEDS ORDERED: Dexamethasone 4 MG TAB PO SCH (08:00)
[2021-03-11] MEDS: Cholecalciferol 1,000 UNITS (25 MCG) TAB PO SCH (08:07)
[2021-03-11] MEDS: Ascorbic Acid 500 mg Chewable Tablet PO SCH (08:07)
[2021-03-11] MEDS: Enoxaparin Sodium 40 MG/0.4 ML SYRINGE SC SCH (08:07)
[2021-03-11] MEDS: Lisinopril 10 MG TAB PO SCH (08:07)
[2021-03-11] MEDS: Amlodipine 5 MG TAB PO SCH (08:07)
[2021-03-11] MEDS: Aspirin 81 mg Enteric Coated Tablet PO SCH (08:07)
[2021-03-11] MEDS: Zinc Gluconate 50 MG TAB PO SCH (08:07)
[2021-03-11] MEDS: HumaLOG 300 UNITS/3 ML VIAL SC PRN (11:44)
[2021-03-11 12:03] VITALS: TEMP 98.5
[2021-03-11 13:48] VITALS: BP 125/61
== END 2021-03-11 15:39 | disposition home or self-care (01) | DRG 177 ==
LOC: CSHERS 15:39 → CSHERHOLD 22:04 → CSHTELE 02-28 13:45 → CSHICU 03-04 15:51 → CSHTELE 03-08 16:00
PROVIDERS: ADMIT Student in an Organized Health Care Education/Training Program; ATTEND Family Medicine
PROC: 8E0ZXY6 Isolation (ICD-10-PCS; principal; 2021-02-27)
PROC: XW033H5 Introduction of Tocilizumab into Peripheral Vein, Percutaneous Approach, New Technology Group 5 (ICD-10-PCS; 2021-03-05)
DX: U07.1 COVID-19 (principal); J12.82 Pneumonia due to coronavirus disease 2019; J96.01 Acute respiratory failure with hypoxia; E87.1 Hypo-osmolality and hyponatremia; E86.0 Dehydration; R79.89 Other specified abnormal findings of blood chemistry; E11.22 Type 2 diabetes mellitus with diabetic chronic kidney disease; I12.9 Hypertensive chronic kidney disease with stage 1 through stage 4 chronic kidney disease, or unspecified chronic kidney disease; N18.2 Chronic kidney disease, stage 2 (mild); E11.65 Type 2 diabetes mellitus with hyperglycemia; Z79.84 Long term (current) use of oral hypoglycemic drugs; Z79.899 Other long term (current) drug therapy
CPT/HCPCS: 0240U; 36415; 36416; 36600; 71045; 71275; 80048; 80053; 81003; 82728; 82805; 83036; 83605; 83880; 84145; 85025; 85379; 86140; 87040; 87086; 93005; 93306; 94640; 94760; 94799; 96365; 96367; 96375; J0696; J1100; J1650; J1815; J1940; J2405; J3262; J3490; J8540